=== PATIENT | female | born 1935 | race Caucasian/White ===

== ENCOUNTER 2017-07-02 18:29 | Emergency (ER) | payer MEDICARE, OTHER ==
[~2017-07-02] VITALS: Ht 157.5 cm; Wt 92.0 kg
[~2017-07-02 18:29] MED LIST: ATEN-100 PO; LEVA500T PO; METR-1 PO; ONDA4TAB7 PO
[2017-07-02 18:31] VITALS: BP 176/63; PULSE 60; RESP 12; TEMP 99.1; O2SAT 99
[2017-07-02] MEDS ORDERED: ATEN25TA PO (18:41)
[2017-07-02 19:09] VITALS: BP 226/86; PULSE 59; RESP 17; O2SAT 99
--- NOTE | 2017-07-02 19:09 | PD ---
HPI Chief Complaint: Edema Time Seen by Provider: 19:06 Travel History International Travel<30 days: No Contact w/Intl Traveler<30days: No Traveled to known affect area: No History of Present Illness HPI This is an 82-year-old female who presents accompanied by family members for evaluation of right lower extremity pain, swelling. Symptoms started spontaneously 7-10 days ago. She reports the pain, aching, and the right tibia fibular region which is constant, worse when attempting to ambulate. Symptoms have persisted and worsened which prompted evaluation. She denies any pain in the right thigh, hip, knee. She denies any chest pain or shortness of breath. She denies any recent travel, recent surgery. No history of DVT or PE. She has a history of hypertension. No other complaints at this time. PFSH Past Medical History Cardiovascular Problems: Yes (HBP) Diminished Hearing: No Hypertension: Yes Immunizations Current: No Tetanus Vaccination: > 5 Years Influenza Vaccination: No : 4 Para: 3 Past Surgical History Surgical History: No Previous Surgery Social History Alcohol Use: No (PT DENIES ) Tobacco Use: No Substance Use: No Allergies-Medications (Allergen,Severity, Reaction): Coded Allergies: No Known Allergies (Unverified , 07/02/17) Reported Meds & Prescriptions Reported Meds & Active Scripts Active Keflex (Cephalexin) 500 Mg Cap 500 Mg PO Q6H 10 Days Bactrim DS (Sulfamethoxazole-Trimethoprim) 800-160 Mg Tab 1 Tab PO BID Reported Atenolol 25 Mg Tab 25 Mg PO DAILY Review of Systems Except as stated in HPI: all other systems reviewed are Neg Physical Exam Narrative GENERAL: Pleasant well developed well-nourished female in no acute distress SKIN: Warm and dry. HEAD: Atraumatic. Normocephalic. EYES: Pupils equal and round. No scleral icterus. No injection or drainage. ENT: No nasal bleeding or discharge. Mucous membranes pink and moist. NECK: Trachea midline. No JVD. CARDIOVASCULAR: Regular rate and rhythm. No murmur appreciated. RESPIRATORY: No accessory muscle use. Clear to auscultation. Breath sounds equal bilaterally. GASTROINTESTINAL: Abdomen soft, non-tender, nondistended. Hepatic and splenic margins not palpable. MUSCULOSKELETAL: No obvious deformities. there is 1+ tibial edema to the right lower extremity, somewhat erythematous, tender to palpation. The Achilles tendon is intact. 2+ dorsalis pedis and posterior tibial pulses. NEUROLOGICAL: Awake and alert. No obvious cranial nerve deficits. Motor grossly within normal limits. Normal speech. PSYCHIATRIC: Appropriate mood and affect; insight and judgment normal. Data Data Last Documented VS Vital Signs Date Time Temp Pulse Resp B/P (MAP) Pulse Ox O2 Delivery O2 Flow Rate FiO2 07/02/17 19:09 59 17 226/86 (132) 99 Room Air 07/02/17 18:31 99.1 Orders Orders Us Leg Venous Doppler (07/02/17 19:04) Tibia/Fibula (Ap/Lat) (07/02/17 ) Complete Blood Count With Diff (07/02/17 19:04) Basic Metabolic Panel (Bmp) (07/02/17 19:04) Act Partial Throm Time (Ptt) (07/02/17 19:04) Prothrombin Time / Inr (Pt) (07/02/17 19:04) Iv Access Insert/Monitor (07/02/17 19:04) Morphine Inj (Morphine Inj) (07/02/17 19:15) Ondansetron Inj (Zofran Inj) (07/02/17 19:15) Sulfamet-Trimeth Ds 800-160 Mg (Bactrim (07/02/17 20:45) Cephalexin (Keflex) (07/02/17 20:45) Labs Laboratory Tests Test 07/02/17 19:15 White Blood Count 11.8 TH/MM3 Red Blood Count 4.19 MIL/MM3 Hemoglobin 12.4 GM/DL Hematocrit 38.3 % Mean Corpuscular Volume 91.4 FL Mean Corpuscular Hemoglobin 29.7 PG Mean Corpuscular Hemoglobin Concent 32.5 % Red Cell Distribution Width 14.3 % Platelet Count 291 TH/MM3 Mean Platelet Volume 8.0 FL Neutrophils (%) (Auto) 79.1 % Lymphocytes (%) (Auto) 13.3 % Monocytes (%) (Auto) 6.3 % Eosinophils (%) (Auto) 1.0 % Basophils (%) (Auto) 0.3 % Neutrophils # (Auto) 9.4 TH/MM3 Lymphocytes # (Auto) 1.6 TH/MM3 Monocytes # (Auto) 0.7 TH/MM3 Eosinophils # (Auto) 0.1 TH/MM3 Basophils # (Auto) 0.0 TH/MM3 CBC Comment DIFF FINAL Differential Comment Prothrombin Time 10.4 SEC Prothromb Time International Ratio 0.9 RATIO Activated Partial Thromboplast Time 27.8 SEC Blood Urea Nitrogen 25 MG/DL Creatinine 1.07 MG/DL Random Glucose 107 MG/DL Calcium Level 9.6 MG/DL Sodium Level 138 MEQ/L Potassium Level 3.9 MEQ/L Chloride Level 100 MEQ/L Carbon Dioxide Level 32.1 MEQ/L Anion Gap 6 MEQ/L Estimat Glomerular Filtration Rate 49 ML/MIN [facility] Medical Decision Making Medical Screen Exam Complete: Yes Emergency Medical Condition: Yes Medical Record Reviewed: Yes Interpretation(s) CONCLUSION: 1. 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 2. No acute fracture or dislocation. 3. Plantar calcaneal spurring. 4. Scattered soft tissue phleboliths. Ultrasound unremarkable Differential Diagnosis Right lower extremity DVT, pretibial cellulitis, erysipelas, erythema nodosum, peripheral vascular disease, peripheral neuropathy Narrative Course 82-year-old female presents with 7-10 days of right lower extremity pain and swelling. Examination reveals 1+ pretibial edema with reddened and erythematous skin. Plan is for basic lab work, tibia fibula x-ray, ultrasound of the right lower extremity. The patient be given a small dose of morphine and Zofran. The patient's ultrasound is negative for DVT. X-rays reveals no acute abnormality. Blood work is only notable for a WBC count of 11.8, BUN 25, creatinine 1.07. Her examination is most consistent with mild cellulitis of the lower right pretibial region. She does have some dry cracked skin in the region and this is likely the etiology. The plan would be to treat the patient has an outpatient and have her follow up closely with primary care physician in 2-3 days for recheck. She'll be given doses of Bactrim and Keflex here and discharged with prescriptions for the same. Discussed signs and symptoms that would warrant return to the emergency room. She is stable for discharge. Diagnosis Primary Impression: Cellulitis of right lower extremity Additional Instructions: Antibiotics as prescribed. Walker for ambulation. Follow-up with primary care physician in 2-3 days for recheck. Return for any new or worsening symptoms. Med/Other Pt SpecificInfo: Prescription(s) given Scripts Cephalexin (Keflex) 500 Mg Cap 500 MG PO Q6H for Infection for 10 Days, #40 CAP 0 Refills Prov: Shannan Loera MD 07/02/17 Sulfamethoxazole-Trimethoprim (Bactrim DS) 800-160 Mg Tab 1 TAB PO BID for Infection, #20 TAB 0 Refills Prov: Shannan Loera MD 07/02/17 Disposition: 01 DISCHARGE HOME Condition: Stable Ministerio Smith Jul 02, 2017 19:09
[2017-07-02] MEDS ORDERED: ONDANSETRON HCL 4 MG/2 ML VIAL IV PUSH ONE (19:15)
[2017-07-02] MEDS ORDERED: MORPHINE SULFATE 4 MG/ML INJ IV PUSH ONE (19:15)
[2017-07-02 19:30] LABS: AUTOMATED NEUTROPHIL # 9.4 TH/MM3 (1.8-7.7); BASOPHIL % 0.3 % (0.0-2.0); EOSINOPHIL # 0.1 TH/MM3 (0-0.4); HEMATOCRIT 38.3 % (35.0-46.0); HEMO FLAGS DIFF FINAL; LYMPH % 13.3 % (9.0-44.0); LYMPHOCYTE # 1.6 TH/MM3 (1.0-4.8); MEAN CELL VOLUME 91.4 FL (80.0-100.0); MEAN CORPUSCULAR HEMOGLOBIN 29.7 PG (27.0-34.0); MEAN CORPUSCULAR HGB CONC 32.5 % (32.0-36.0); MONO % 6.3 % (0.0-8.0); NEUT % 79.1 % (16.0-70.0); PLATELET COUNT 291 TH/MM3 (150-450); RED BLOOD COUNT 4.19 MIL/MM3 (4.00-5.30); RED CELL DISTRIBUTION WIDTH 14.3 % (11.6-17.2); WHITE BLOOD COUNT 11.8 TH/MM3 (4.0-11.0)
[2017-07-02 19:48] LABS: APTT (PATIENT) 27.8 SEC (24.3-30.1); INTERNATIONAL NORMALIZED RATIO 0.9 RATIO; PROTHROMBIN TIME - PATIENT 10.4 SEC (9.8-11.6)
[2017-07-02 19:50] LABS: BICARBONATE 32.1 MEQ/L (21.0-32.0); POTASSIUM 3.9 MEQ/L (3.5-5.1)
--- NOTE | 2017-07-02 19:53 | RADRPT ---
EXAM DATE/TIME: 07/02/2017 19:24 [facility] COMPARISON: No previous studies available for comparison. INDICATIONS : Right leg pain. MEDICAL HISTORY : Hypertension. Right leg pain. SURGICAL HISTORY : None. ENCOUNTER: Initial ACUITY: 3 days PAIN SCORE: 8/10 LOCATION: Right leg. TECHNIQUE: Venous ultrasound of the leg was performed from the inguinal ligament to the proximal calf. Real-yazan e, color Doppler and spectral tracing, compression and augmentation techniques were used. FINDINGS: There is normal compressibility of the deep venous system from the inguinal region to the proximal ca lf. No echogenic clot is seen in the lumen of the common femoral, femoral, popliteal, and posterior tibial veins. There is a normal response of the venous system to proximal and distal augmentation an d respiration. CONCLUSION: No evidence of deep venous thrombosis within the right lower extremity. Eduardo Gonzáles MD on July 02, 2017 at 19:51 Board Certified Radiologist. This report was verified electronically.
--- NOTE | 2017-07-02 20:26 | RADRPT ---
EXAM DATE/TIME: 07/02/2017 19:46 [facility] COMPARISON: No previous studies available for comparison. INDICATIONS : Right lower leg pain and swelling. MEDICAL HISTORY : Hypertension. SURGICAL HISTORY : None. ENCOUNTER: Initial ACUITY: 1 week PAIN SCORE: 8/10 LOCATION: Right tibia/fibula. FINDINGS: Moderate osteoarthritis is noted involving the femoral tibial and patellofemoral joints. There is no acute fracture or dislocation of the tibia or fibula. Scattered phleboliths are noted within soft tis sues. Plantar calcaneal spurring is noted. CONCLUSION: 1. 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 2. No acute fracture or dislocation. 3. Plantar calcaneal spurring. 4. Scattered soft tissue phleboliths. Eduardo Gonzáles MD on July 02, 2017 at 20:22 Board Certified Radiologist. This report was verified electronically.
[2017-07-02] MEDS ORDERED: CEPH-460 PO (20:34)
[2017-07-02] MEDS ORDERED: BACT800T5 PO (20:34)
[2017-07-02] MEDS ORDERED: SULFAMETHOXAZOLE-TRIMETHOPRIM DS 800-160 MG TAB PO ONE (20:45)
[2017-07-02] MEDS ORDERED: CEPHALEXIN MONOHYDRATE 500 MG CAP PO ONE (20:45)
== END 2017-07-02 21:41 | disposition home or self-care (01) ==
LOC: NEPE 18:29
DX: L03.115 Cellulitis of right lower limb (principal); M77.31 Calcaneal spur, right foot; M17.11 Unilateral primary osteoarthritis, right knee; I87.8 Other specified disorders of veins; I10 Essential (primary) hypertension; Z79.899 Other long term (current) drug therapy
CPT/HCPCS: 73590; 80048; 85025; 85610; 85730; 93971; 96374; 96375; 99285; J2270; J2405

== ENCOUNTER 2017-07-10 12:56 | Emergency (ER) | payer OTHER ==
[~2017-07-10 12:56] MED LIST changes: -ATEN-100 PO; +ATEN25TA PO; +BACT800T5 PO; +CEPH-460 PO; -LEVA500T PO; -METR-1 PO; -ONDA4TAB7 PO
[2017-07-10 12:58] VITALS: BP 194/82; PULSE 56; RESP 20; TEMP 98.5; O2SAT 96
--- NOTE | 2017-07-10 13:05 | PD ---
Physical Exam Time Seen by Provider: 13:03 Narrative 82 y/o female here for recheck. D/x with cellulitis recently tx as an outpatient. Initially seeing improvement but worsened today. Vital signs reviewed. Seen at triage desk. Awaiting bed placement. Data Data Last Documented VS Vital Signs Date Time Temp Pulse Resp B/P (MAP) Pulse Ox O2 Delivery O2 Flow Rate FiO2 07/10/17 12:58 98.5 56 20 194/82 (119) 96 Room Air [facility] Medical Record Reviewed: Yes Supervised Visit with ZEESHAN: Ministerio Kapadia Jul 10, 2017 13:05
--- NOTE | 2017-07-10 14:13 | PD ---
HPI Chief Complaint: Skin Problem Time Seen by Provider: 14:02 Travel History International Travel<30 days: No Contact w/Intl Traveler<30days: No Traveled to known affect area: No History of Present Illness HPI 82-year-old female presents the emergency department with recurrent erythema, warmth, and discomfort in the right lower extremity. Patient was seen previously on July 02, 2017 and diagnosed with cellulitis treated with Keflex and Bactrim. The patient's family states that the Bactrim and it 2 days ago and since that time her redness and pain has worsened. Currently still taking the Keflex without improvement. Pain is about a 3 out of 10. Patient denies fever, chills, weakness, or other constitutional symptoms. Patient has no known drug allergies. There is no history of open wound to the lower extremity. Previous workup included ultrasound and x-rays. PFSH Past Medical History Cardiovascular Problems: Yes (HBP) Diminished Hearing: No Hypertension: Yes Immunizations Current: No : 4 Para: 3 Social History Alcohol Use: No (PT DENIES ) Tobacco Use: No Substance Use: No Allergies-Medications (Allergen,Severity, Reaction): Coded Allergies: No Known Allergies (Unverified , 07/02/17) Reported Meds & Prescriptions Reported Meds & Active Scripts Active Reported Atenolol 25 Mg Tab 25 Mg PO DAILY Review of Systems Except as stated in HPI: all other systems reviewed are Neg General / Constitutional: No: Fever Eyes: No: Visual changes HENT: No: Headaches Cardiovascular: No: Chest Pain or Discomfort Respiratory: No: Shortness of Breath Gastrointestinal: No: Abdominal Pain Genitourinary: No: Dysuria Musculoskeletal: No: Pain Skin: Positive Other (see history of present illness.), No Rash Neurologic: No: Weakness Psychiatric: No: Depression Endocrine: No: Polydipsia Hematologic/Lymphatic: No: Easy Bruising Physical Exam Narrative GENERAL: Patient appears no acute distress. SKIN: Warm and dry. Normal color. Normal turgor. Patient has area of increased warmth and erythema to the right anterior ankle and lower gabriel, without significant edema. There is some dry cracked skin present which is probably the nidus of infection. There is no open wounds or drainage. No lymphangitis. No streaking. HEAD: Atraumatic. Normocephalic. EYES: Pupils equal and round. No scleral icterus. No injection or drainage. ENT: No nasal bleeding or discharge. Mucous membranes pink and moist. Pharynx is clear. Airways patent. NECK: Trachea midline. Supple nontender. CARDIOVASCULAR: Regular rate and rhythm. RESPIRATORY: No accessory muscle use. Clear to auscultation. Breath sounds equal bilaterally. MUSCULOSKELETAL: Extremities without clubbing, cyanosis, or edema. No obvious deformities. NEUROLOGICAL: Awake and alert. No obvious cranial nerve deficits. Motor grossly within normal limits. Five out of 5 muscle strength in the arms and legs. Normal speech. PSYCHIATRIC: Appropriate mood and affect; insight and judgment normal. Data Data Last Documented VS Vital Signs Date Time Temp Pulse Resp B/P (MAP) Pulse Ox O2 Delivery O2 Flow Rate FiO2 07/10/17 18:05 07/10/17 14:36 97 Room Air 07/10/17 13:59 17 07/10/17 12:58 98.5 56 Orders Orders Complete Blood Count With Diff (07/10/17 14:13) Comprehensive Metabolic Panel (07/10/17 14:13) Lactic Acid (07/10/17 14:13) Iv Access Insert/Monitor (07/10/17 14:13) Ecg Monitoring (07/10/17 14:13) Oximetry (07/10/17 14:13) Sodium Chloride 0.9% Flush (Ns Flush) (07/10/17 14:15) Asp:No Reaction To [place]/Vanc (Asp Crit (07/10/17 14:15) Asp: Does Not Meet Inpt Admit (Asp Crit: (07/10/17 14:15) Asp: Iv Antibiotics Admit Only (Asp Crit (07/10/17 14:15) Asp: Location Of [place] Admin (Asp Crit: (07/10/17 14:15) [facility] [place] (07/10/17 14:15) Consult Infectious Disease (07/10/17 ) Case Management Consult (07/10/17 ) [facility] [place] (07/10/17 15:30) Dalbavancin Inj (Dalvance Inj) (07/10/17 15:20) Labs Laboratory Tests Test 07/10/17 14:20 White Blood Count 7.4 TH/MM3 Red Blood Count 4.04 MIL/MM3 Hemoglobin 12.1 GM/DL Hematocrit 36.8 % Mean Corpuscular Volume 91.0 FL Mean Corpuscular Hemoglobin 30.0 PG Mean Corpuscular Hemoglobin Concent 33.0 % Red Cell Distribution Width 14.4 % Platelet Count 317 TH/MM3 Mean Platelet Volume 7.0 FL Neutrophils (%) (Auto) 71.8 % Lymphocytes (%) (Auto) 13.6 % Monocytes (%) (Auto) 6.7 % Eosinophils (%) (Auto) 7.4 % Basophils (%) (Auto) 0.5 % Neutrophils # (Auto) 5.3 TH/MM3 Lymphocytes # (Auto) 1.0 TH/MM3 Monocytes # (Auto) 0.5 TH/MM3 Eosinophils # (Auto) 0.5 TH/MM3 Basophils # (Auto) 0.0 TH/MM3 CBC Comment DIFF FINAL Differential Comment Blood Urea Nitrogen 26 MG/DL Creatinine 1.21 MG/DL Random Glucose 108 MG/DL Total Protein 7.6 GM/DL Albumin 2.8 GM/DL Calcium Level 9.4 MG/DL Alkaline Phosphatase 77 U/L Aspartate Amino Transf (AST/SGOT) 15 U/L Alanine Aminotransferase (ALT/SGPT) 13 U/L Total Bilirubin 0.2 MG/DL Sodium Level 138 MEQ/L Potassium Level 3.6 MEQ/L Chloride Level 103 MEQ/L Carbon Dioxide Level 29.9 MEQ/L Anion Gap 5 MEQ/L Estimat Glomerular Filtration Rate 43 ML/MIN Lactic Acid Level 1.5 mmol/L MDM Medical Decision Making Medical Screen Exam Complete: Yes Emergency Medical Condition: Yes Medical Record Reviewed: Yes Differential Diagnosis Right lower extremity cellulitis. Failure to outpatient oral therapy. Recurrence of cellulitis despite oral therapy. Narrative Course Patient is medically stable at time of exam. Labs ordered including CBC, CMP, lactic acid. Normal CBC. CMP shows BUN of 26, creatinine 1.21, and normal lactic acid of 1.5. Albumin is slightly low at 2.8. Patient is given Dalvance 1500 mg IV. Patient is discharged home with planned follow-up with her primary care physician in the next week to ensure continued improvement. Patient can return to the verge department with worsening symptoms as necessary. Diagnosis Primary Impression: Cellulitis of right lower extremity without foot Referrals: Primary Care Physician Patient Instructions: Cellulitis (ED), General Instructions Med/Other Pt SpecificInfo: No Meds Exist/No RX given Disposition: 01 DISCHARGE HOME Condition: Stable Ángel Macias Jul 10, 2017 14:13
[2017-07-10] MEDS ORDERED: ASP: Only reason for admit - IV antibiotics OTHER ONE (14:15)
[2017-07-10] MEDS ORDERED: MISCELLANEOUS PHARMACY INFORMATION XX ONE ×2 (14:15→15:30)
[2017-07-10] MEDS ORDERED: ASP: Does not meet inpatient admission criteria OTHER ONE (14:15)
[2017-07-10] MEDS ORDERED: ASP: Location of Dalbavancin administration OTHER ONE (14:15)
[2017-07-10] MEDS ORDERED: SODIUM CHLORIDE 0.9% FLUSH 10 ML FLUSH IV FLUSH PRN (14:15)
[2017-07-10] MEDS ORDERED: ASP: No known hypersensitivity to Vanco, Telavancin, Dalbavancin OTHER ONE (14:15)
[2017-07-10 14:36] VITALS: O2SAT 97
[2017-07-10 14:38] LABS: AUTOMATED NEUTROPHIL # 5.3 TH/MM3 (1.8-7.7); BASOPHIL % 0.5 % (0.0-2.0); EOSINOPHIL # 0.5 TH/MM3 (0-0.4); EOSINOPHIL % 7.4 % (0.0-4.0); HEMATOCRIT 36.8 % (35.0-46.0); HEMO FLAGS DIFF FINAL; LYMPH % 13.6 % (9.0-44.0); MONO % 6.7 % (0.0-8.0); NEUT % 71.8 % (16.0-70.0); PLATELET COUNT 317 TH/MM3 (150-450); RED BLOOD COUNT 4.04 MIL/MM3 (4.00-5.30); RED CELL DISTRIBUTION WIDTH 14.4 % (11.6-17.2); WHITE BLOOD COUNT 7.4 TH/MM3 (4.0-11.0)
[2017-07-10 14:54] LABS: ALT (GPT) 13 U/L (10-53); ANION GAP 5 MEQ/L (5-15); AST (GOT) 15 U/L (15-37); BICARBONATE 29.9 MEQ/L (21.0-32.0); BLOOD UREA NITROGEN 26 MG/DL (7-18); CHLORIDE 103 MEQ/L (98-107); GLOMERULAR FILTRATION RATE 43 ML/MIN (>89); POTASSIUM 3.6 MEQ/L (3.5-5.1); SODIUM (NA) 138 MEQ/L (136-145)
[2017-07-10 14:57] LABS: ALKALINE PHOSPHATASE 77 U/L (45-117); TOTAL BILIRUBIN ADULT 0.2 MG/DL (0.2-1.0)
--- NOTE | 2017-07-10 15:03 | PD ---
Physical Exam Date Seen by Provider: Jul 10, 2017 Narrative Patient is being seen here for cellulitis of right lower extremity which has failed outpatient treatment. Data Data Last Documented VS Vital Signs Date Time Temp Pulse Resp B/P (MAP) Pulse Ox O2 Delivery O2 Flow Rate FiO2 07/10/17 14:36 97 Room Air 07/10/17 13:59 17 07/10/17 12:58 98.5 56 Orders Orders Complete Blood Count With Diff (07/10/17 14:13) Comprehensive Metabolic Panel (07/10/17 14:13) Lactic Acid (07/10/17 14:13) Iv Access Insert/Monitor (07/10/17 14:13) Ecg Monitoring (07/10/17 14:13) Oximetry (07/10/17 14:13) Sodium Chloride 0.9% Flush (Ns Flush) (07/10/17 14:15) Asp:No Reaction To [place]/Vanc (Asp Crit (07/10/17 14:15) Asp: Does Not Meet Inpt Admit (Asp Crit: (07/10/17 14:15) Asp: Iv Antibiotics Admit Only (Asp Crit (07/10/17 14:15) Asp: Location Of [place] Admin (Asp Crit: (07/10/17 14:15) [facility] ([facility] (07/10/17 14:15) Labs Laboratory Tests Test 07/10/17 14:20 White Blood Count 7.4 TH/MM3 Red Blood Count 4.04 MIL/MM3 Hemoglobin 12.1 GM/DL Hematocrit 36.8 % Mean Corpuscular Volume 91.0 FL Mean Corpuscular Hemoglobin 30.0 PG Mean Corpuscular Hemoglobin Concent 33.0 % Red Cell Distribution Width 14.4 % Platelet Count 317 TH/MM3 Mean Platelet Volume 7.0 FL Neutrophils (%) (Auto) 71.8 % Lymphocytes (%) (Auto) 13.6 % Monocytes (%) (Auto) 6.7 % Eosinophils (%) (Auto) 7.4 % Basophils (%) (Auto) 0.5 % Neutrophils # (Auto) 5.3 TH/MM3 Lymphocytes # (Auto) 1.0 TH/MM3 Monocytes # (Auto) 0.5 TH/MM3 Eosinophils # (Auto) 0.5 TH/MM3 Basophils # (Auto) 0.0 TH/MM3 CBC Comment DIFF FINAL Differential Comment Blood Urea Nitrogen 26 MG/DL Creatinine 1.21 MG/DL Random Glucose 108 MG/DL Total Protein 7.6 GM/DL Albumin 2.8 GM/DL Calcium Level 9.4 MG/DL Alkaline Phosphatase 77 U/L Aspartate Amino Transf (AST/SGOT) 15 U/L Alanine Aminotransferase (ALT/SGPT) 13 U/L Total Bilirubin 0.2 MG/DL Sodium Level 138 MEQ/L Potassium Level 3.6 MEQ/L Chloride Level 103 MEQ/L Carbon Dioxide Level 29.9 MEQ/L Anion Gap 5 MEQ/L Estimat Glomerular Filtration Rate 43 ML/MIN Lactic Acid Level 1.5 mmol/L MDM Supervised Visit with ZEESHAN: Yes Differential Diagnosis My differential diagnosis includes but is not limited to localized wound infection, cellulitis, abscess Narrative Course I, Dr. Lipscomb, have reviewed the advance practice practitioner's documentation and am in agreement, met with the patient face to face, made the diagnosis, and the medical decision making was done by me. *My assessment and Findings: Vital Signs Date Time Temp Pulse Resp B/P (MAP) Pulse Ox O2 Delivery O2 Flow Rate FiO2 07/10/17 14:36 97 Room Air 07/10/17 13:59 17 07/10/17 12:58 98.5 56 20 194/82 (119) 96 Room Air CBC & BMP Diagram 07/10/17 14:20 Total Protein 7.6, Albumin 2.8 L, Calcium Level 9.4, Alkaline Phosphatase 77, Aspartate Amino Transf (AST/SGOT) 15, Alanine Aminotransferase (ALT/SGPT) 13, Total Bilirubin 0.2 This patient presents for cellulitis which has not resolved with outpatient treatment. She is the perfect candidate for valve bands. She is not septic and does not necessarily need to be in the hospital except for the need for antibiotics. Diagnosis Primary Impression: Cellulitis Qualified Codes: L03.115 - Cellulitis of right lower limb Patient Instructions: Cellulitis (DC), General Instructions Additional Instruction: See your doctor in about a week for recheck. Disposition: 01 DISCHARGE HOME Condition: Stable Tanja Lipscomb MD Jul 10, 2017 15:03
[2017-07-10] MEDS ORDERED: DALBAVANCIN INJ 1,500 MG in DEXTROSE 5% IN WATE 500 ML INJ 500 ML IV STA ×2 (15:20)
== END 2017-07-10 19:15 | disposition home or self-care (01) ==
LOC: NEPC 12:56
DX: L03.115 Cellulitis of right lower limb (principal); I10 Essential (primary) hypertension; Z79.899 Other long term (current) drug therapy
CPT/HCPCS: 80053; 83605; 85025; 96365; 99284; J0875; J7060